=== PATIENT | female | born 2000 | race Caucasian/White ===

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

== ENCOUNTER 2019-03-01 08:07 | Emergency (ER) | payer OTHER ==
[2019-03-01] MEDS ORDERED: Zofran 4 MG/2 ML VIAL IV ONE ×2 (08:44→10:17)
[2019-03-01] MEDS ORDERED: Sodium Chloride 0.9% 1000 ML 1,000 ML IV STA ×2 (08:44→08:45)
[2019-03-01] MEDS ORDERED: PROTONIX 40 MG IV IV ONE ×2 (08:47→08:53)
[2019-03-01 08:51] LABS: BASOPHIL % 0.1 % (0.0-0.4); Basophil (Absolute #) 0.01 (0-0.4); Eosinophil % 0.1 % (0.00-5.0); Eosinophil (Absolute #) 0.01 (0-0.5); Granulocyte Absolute (ANC) 14.91 (1.4-6.9); Granulocytes % 92.9 % (36.0-66.0); Hematocrit 35.4 % (35-47); Hemoglobin 12.4 gm/dl (12.0-16.0); Lymphocyte (Absolute #) 0.59 (1.0-4.6); Lymphocytes % 3.7 % (24.0-44.0); Mean Cell Volume 88.3 fl (78-100); Mean Corpuscular Hemoglobin 30.9 pg (26-32); Mean Platelet Volume 12.2 fl (6-9.5); Monocyte (Absolute #) 0.51 (0.0-1.3); Monocytes % 3.2 % (0.0-12.0); Platelet Count 294 K/mm3 (150-450); Red Blood Count 4.01 M/mm3 (4.1-5.4); Red Cell Distribution Width 12.3 % (11.5-14.0)
[2019-03-01] MEDS ORDERED: Sodium Chloride 0.9% 1000 ML 1,000 ML ONE ×2 (08:53→09:48)
[2019-03-01] MEDS ORDERED: Zofran 4 MG/2 ML VIAL ONE ×2 (08:53→10:33)
--- NOTE | 2019-03-01 08:55 | ERPHSYRPT ---
- History of Present Illness Time Seen by Provider: 03/01/19 08:35 Source: patient Exam Limitations: clinical condition Patient Subjective Stated Complaint: pt here for nausea and vomiting since last night, she states she does this once a month and is going to a neurologist thsi month, she tried antivert at home Triage Nursing Assessment: pt alert,anxious, walked in, resp easy, skin w/d/p, denies any diifficulty with b/b. no fever Physician History: PATIENT WITH A HISTORY OF MONTHLY EMESIS COMPLAINS OF FREQUENT EPISODES OF EMESIS THROUGHOUT LAST NIGHT. DENIES ABDOMINAL PAIN, DIARRHEA, WEAKNESS OR DIZZINESS. ADMITS TO SMOKING MARIJUANA DAILY FOR YEARS. Timing/Duration: today Severity: moderate Associated Symptoms: nausea Allergies/Adverse Reactions: No Known Drug Allergies Allergy (Verified 04/03/17 13:01) Home Medications: Naproxen 250 mg DAILY 03/01/19 [History] Norgestimate-Ethinyl Estradiol [Jys-Yy-Tjuagd Tablet] 1 ea DAILY 03/01/19 [ History] PARoxetine HCl [Paroxetine HCl] 20 mg DAILY 03/01/19 [History] Hx Tetanus, Diphtheria Vaccination/Date Given: Yes Hx Influenza Vaccination/Date Given: No Hx Pneumococcal Vaccination/Date Given: No Immunizations Up to Date: Yes - Review of Systems Constitutional: No Fever, No Chills Eyes: No Symptoms Ears, Nose, & Throat: No Symptoms Respiratory: No Symptoms, No Cough, No Dyspnea Cardiac: No Chest Pain, No Edema, No Syncope Abdominal/Gastrointestinal: Nausea, Vomiting, No Abdominal Pain, No Diarrhea Genitourinary Symptoms: No Symptoms, No Dysuria Musculoskeletal: No Symptoms, No Back Pain, No Neck Pain Skin: No Rash Neurological: No Dizziness, No Focal Weakness, No Sensory Changes Psychological: No Symptoms Endocrine: No Symptoms All Other Systems: Reviewed and Negative - Past Medical History Pertinent Past Medical History: No Neurological History: No Pertinent History ENT History: No Pertinent History Cardiac History: No Pertinent History Respiratory History: No Pertinent History Endocrine Medical History: No Pertinent History Musculoskeletal History: No Pertinent History GI Medical History: Pancreatitis History: No Pertinent History Psycho-Social History: No Pertinent History Female Reproductive Disorders: No Pertinent History Other Medical History: pt states she was recently diagnosed with pancreatitis in an emergency room in [place]. Pt has recent hx of N/V. - Past Surgical History Past Surgical History: No Neuro Surgical History: No Pertinent History Cardiac: No Pertinent History Respiratory: No Pertinent History Gastrointestinal: No Pertinent History Genitourinary: No Pertinent History Musculoskeletal: No Pertinent History Female Surgical History: No Pertinent History - Social History Smoking Status: Never smoker Exposure to second hand smoke: No Drug Use: marijuana Patient Lives Alone: No - Female History Hx Last Menstrual Period: month Hx Now: No (unsure) - Nursing Vital Signs Nursing Vital Signs: Initial Vital Signs Temperature 98.6 F 03/01/19 08:21 Pulse Rate 57 L 03/01/19 08:21 Respiratory Rate 16 03/01/19 08:21 Blood Pressure 128/55 03/01/19 08:21 O2 Sat by Pulse Oximetry 100 03/01/19 08:21 Pain Scale Pain Intensity 3 - Physical Exam General Appearance: no apparent distress, alert Eye Exam: PERRL/EOMI, eyes nml inspection Ears, Nose, Throat Exam: normal ENT inspection, TMs normal, pharynx normal, moist mucous membranes Neck Exam: normal inspection, non-tender, supple, full range of motion Respiratory Exam: normal breath sounds, lungs clear, No respiratory distress Cardiovascular Exam: regular rate/rhythm, normal heart sounds, normal peripheral pulses Gastrointestinal/Abdomen Exam: soft, normal bowel sounds, No tenderness, No mass Back Exam: normal inspection, normal range of motion, No CVA tenderness, No vertebral tenderness Extremity Exam: normal inspection, normal range of motion, pelvis stable Neurologic Exam: alert, oriented x 3, cooperative, normal mood/affect, nml cerebellar function, nml station & gait, sensation nml, No motor deficits Skin Exam: normal color, warm, dry, No rash Lymphatic Exam: No adenopathy SpO2 Interpretation: normal SpO2: 100 - Radiology Exams Abdomen X-ray Interpretation: Discussed w/ radiologist, Negative Ordered Tests: Active Orders 24 hr Category Date Time Status ACCUCHECK [Accucheck] STAT Care 03/01/19 10:18 Active IV Insertion STAT Care 03/01/19 08:44 Active Orthostatic Vital Signs STAT Care 03/01/19 08:44 Active OBSTR/ACUTE ABDOMEN SERIES Stat Exams 03/01/19 08:47 Completed AMYLASE Stat Lab 03/01/19 08:48 Completed BLOOD CULTURE Stat Lab 03/01/19 09:18 Received BMP Stat Lab 03/01/19 08:48 Completed CBC W DIFF Stat Lab 03/01/19 08:48 Completed CULTURE,URINE Stat Lab 03/01/19 08:48 Received HCG,QUALITATIVE URINE Stat Lab 03/01/19 08:51 Completed LIPASE Stat Lab 03/01/19 08:48 Completed UA W/RFX UR CULTURE Stat Lab 03/01/19 08:48 Completed Urine Triage Profile Stat Lab 03/01/19 09:05 Completed VENOUS BLOOD GAS Stat Lab 03/01/19 09:08 Completed Medication Summary Generic Name Dose Route Start Last Admin Trade Name Freq PRN Reason Stop Dose Admin Insulin Human Regular 100 101 mls @ 4.04 mls/hr 03/01/19 09:15 03/01/19 09:54 units/ Sodium Chloride IV 03/31/19 09:14 Not Given .Q24H EUGENE 4 UNITS/HR Discontinued Medications Generic Name Dose Route Start Last Admin Trade Name Freq PRN Reason Stop Dose Admin Sodium Chloride 1,000 mls @ 999 mls/hr 03/01/19 08:44 03/01/19 10:23 Sodium Chloride 0.9% 1000 Ml IV 03/01/19 09:44 Infused .Q1H1M STA Infusion Sodium Chloride 1,000 mls @ 999 mls/hr 03/01/19 08:45 03/01/19 09:49 Sodium Chloride 0.9% 1000 Ml IV 03/01/19 09:45 999 mls/hr .Q1H1M STA Administration Sodium Chloride Confirm 03/01/19 08:53 Sodium Chloride 0.9% 1000 Ml Administered 03/01/19 08:54 Dose 1,000 mls @ ud .ROUTE .STK-MED ONE Ceftriaxone Sodium/Dextrose 1 g in 50 mls @ 100 mls/hr 03/01/19 09:04 10:24 Rocephin 1 Gm-D5w 50 Ml Bag IV 03/01/19 09:33 Infused STAT STA Infusion Ceftriaxone Sodium/Dextrose Confirm 03/01/19 09:42 Rocephin 1 Gm-D5w 50 Ml Bag Administered 03/01/19 09:43 Dose 1 g in 50 mls @ ud IV .STK-MED ONE Sodium Chloride Confirm 03/01/19 09:48 Sodium Chloride 0.9% 1000 Ml Administered 03/01/19 09:49 Dose 1,000 mls @ ud .ROUTE .STK-MED ONE Ondansetron HCl 4 mg 03/01/19 08:44 03/01/19 09:05 Zofran 4 Mg/2 Ml Vial IV 03/01/19 08:45 4 mg STAT ONE Administration Ondansetron HCl Confirm 03/01/19 08:53 Zofran 4 Mg/2 Ml Vial Administered 03/01/19 08:54 Dose 4 mg .ROUTE .STK-MED ONE Ondansetron HCl 4 mg 03/01/19 10:17 03/01/19 10:35 Zofran 4 Mg/2 Ml Vial IV 03/01/19 10:18 4 mg STAT ONE Administration Ondansetron HCl Confirm 03/01/19 10:33 Zofran 4 Mg/2 Ml Vial Administered 03/01/19 10:34 Dose 4 mg .ROUTE .STK-MED ONE Pantoprazole Sodium 40 mg 03/01/19 08:47 03/01/19 09:05 Protonix 40 Mg Iv IV 03/01/19 08:48 40 mg STAT ONE Administration Pantoprazole Sodium Confirm 03/01/19 08:53 Protonix 40 Mg Iv Administered 03/01/19 08:54 Dose 40 mg IV .STK-MED ONE Lab/Rad Data: Laboratory Result Diagrams 03/01/19 08:48 03/01/19 08:48 Laboratory Results 03/01/19 03/01/19 03/01/19 Range/Units 09:08 09:05 08:51 WBC (4.0-10.5) K/mm3 RBC (4.1-5.4) M/mm3 Hgb (12.0-16.0) gm/dl Hct (35-47) % MCV (78-100) fl MCH (26-32) pg MCHC (32-36) g/dl RDW (11.5-14.0) % Plt Count (150-450) K/mm3 MPV (6-9.5) fl Gran % (36.0-66.0) % Eos # (Auto) (0-0.5) Absolute Lymphs (auto) (1.0-4.6) Absolute Monos (auto) (0.0-1.3) Lymphocytes % (24.0-44.0) % Monocytes % (0.0-12.0) % Eosinophils % (0.00-5.0) % Basophils % (0.0-0.4) % Absolute Granulocytes (1.4-6.9) Basophils # (0-0.4) pO2/FiO2 Ratio 21.0 % VBG pH 7.42 (7.32-7.42) VBG pCO2 at Pat Temp 30 L (42-55) mm/Hg VBG pO2 at Pat Temp 32 (25-40) mm/Hg VBG HCO3 19.5 L (22-28) meq/L VBG O2 Sat (Sara) 70.8 L (95-100) VBG Base Excess -4.0 L (-2.0-2.0) VBG Hemoglobin 12.3 VBG Carboxyhemoglobin 4.2 (0.0-6.9) % T HGB POC Potassium 3.2 L (3.5-5.1) Sodium (137-145) mmol/L Potassium (3.5-5.1) mmol/L Chloride (98-107) mmol/L Carbon Dioxide (22-30) mmol/L Anion Gap (5-15) MEQ/L BUN (7-17) mg/dL Creatinine (0.52-1.04) mg/dL Estimated GFR ML/MIN Glucose (74-106) mg/dL Calcium (8.4-10.2) mg/dL Amylase (30-110) U/L Lipase (23-300) U/L Urine Color (YELLOW) Urine Appearance (CLEAR) Urine pH (5-6) Ur Specific [place] (1.005-1.025) Urine Protein (Negative) Urine Ketones (NEGATIVE) Urine Blood (0-5) Will/ul Urine Nitrite (NEGATIVE) Urine Bilirubin (NEGATIVE) Urine Urobilinogen (0-1) mg/dL Ur Leukocyte Esterase (NEGATIVE) Urine WBC (Auto) (0-5) /HPF Urine RBC (Auto) (0-2) /HPF U Epithel Cells (Auto) (FEW) /HPF Urine Bacteria (Auto) (NEGATIVE) /HPF Urine Mucus (Auto) (NEGATIVE) /HPF Urine Culture Reflexed (NO) Urine Glucose (NEGATIVE) mg/dL Urine HCG, Qual NEGATIVE (Negative) Urine Opiates Level NEGATIVE (NEGATIVE) Ur Methadone NEGATIVE (NEGATIVE) Urine Barbiturates NEGATIVE (NEGATIVE) Ur Phencyclidine (PCP) NEGATIVE (NEGATIVE) Urine Amphetamine NEGATIVE (NEGATIVE) U Benzodiazepine Level NEGATIVE (NEGATIVE) Urine Cocaine NEGATIVE (NEGATIVE) Urine Marijuana (THC) POSITIVE (NEGATIVE) Slides for Path Review 03/01/19 03/01/19 03/01/19 Range/Units 08:48 08:48 08:48 WBC 16.0 H (4.0-10.5) K/mm3 RBC 4.01 L (4.1-5.4) M/mm3 Hgb 12.4 (12.0-16.0) gm/dl Hct 35.4 (35-47) % MCV 88.3 (78-100) fl MCH 30.9 (26-32) pg MCHC 35.0 (32-36) g/dl RDW 12.3 (11.5-14.0) % Plt Count 294 (150-450) K/mm3 MPV 12.2 H (6-9.5) fl Gran % 92.9 H (36.0-66.0) % Eos # (Auto) 0.01 (0-0.5) Absolute Lymphs (auto) 0.59 L (1.0-4.6) Absolute Monos (auto) 0.51 (0.0-1.3) Lymphocytes % 3.7 L (24.0-44.0) % Monocytes % 3.2 (0.0-12.0) % Eosinophils % 0.1 (0.00-5.0) % Basophils % 0.1 (0.0-0.4) % Absolute Granulocytes 14.91 H (1.4-6.9) Basophils # 0.01 (0-0.4) pO2/FiO2 Ratio % VBG pH (7.32-7.42) VBG pCO2 at Pat Temp (42-55) mm/Hg VBG pO2 at Pat Temp (25-40) mm/Hg VBG HCO3 (22-28) meq/L VBG O2 Sat (Sara) (95-100) VBG Base Excess (-2.0-2.0) VBG Hemoglobin VBG Carboxyhemoglobin (0.0-6.9) % T HGB POC Potassium (3.5-5.1) Sodium 141 (137-145) mmol/L Potassium 3.3 L (3.5-5.1) mmol/L Chloride 106 (98-107) mmol/L Carbon Dioxide 19 L (22-30) mmol/L Anion Gap 19.0 H (5-15) MEQ/L BUN 11 (7-17) mg/dL Creatinine 0.63 (0.52-1.04) mg/dL Estimated GFR > 60.0 ML/MIN Glucose 150 H (74-106) mg/dL Calcium 9.7 (8.4-10.2) mg/dL Amylase 114 H (30-110) U/L Lipase 30 (23-300) U/L Urine Color YELLOW (YELLOW) Urine Appearance CLOUDY (CLEAR) Urine pH 7.0 (5-6) Ur Specific [place] 1.030 (1.005-1.025) Urine Protein >=500 (Negative) Urine Ketones MODERATE (NEGATIVE) Urine Blood NEGATIVE (0-5) Will/ul Urine Nitrite NEGATIVE (NEGATIVE) Urine Bilirubin NEGATIVE (NEGATIVE) Urine Urobilinogen NEGATIVE (0-1) mg/dL Ur Leukocyte Esterase LARGE (NEGATIVE) Urine WBC (Auto) >100 (0-5) /HPF Urine RBC (Auto) 6-10 (0-2) /HPF U Epithel Cells (Auto) FEW (FEW) /HPF Urine Bacteria (Auto) MODERATE (NEGATIVE) /HPF Urine Mucus (Auto) SLIGHT (NEGATIVE) /HPF Urine Culture Reflexed YES (NO) Urine Glucose 50 (NEGATIVE) mg/dL Urine HCG, Qual (Negative) Urine Opiates Level (NEGATIVE) Ur Methadone (NEGATIVE) Urine Barbiturates (NEGATIVE) Ur Phencyclidine (PCP) (NEGATIVE) Urine Amphetamine (NEGATIVE) U Benzodiazepine Level (NEGATIVE) Urine Cocaine (NEGATIVE) Urine Marijuana (THC) (NEGATIVE) Slides for Path Review YES - Progress Progress: unchanged (IN) Progress Note: 03/01/19 08:56 IV NORMAL SALINE 1000ML/HR X 2 ZOFRAN 4MG, PROTONIX 40MG IV 03/01/19 10:56, ROCEPHIN 1GM IVPB URINE WITH WBC>100, BACT-MODERATE 03/01/19 10:57 - Departure Departure Disposition: Home Clinical Impression: ACUTE EMESIS, URINARY TRACT INFECTION, HYPOKALEMIA Condition: Stable Critical Care Time: No Referrals: CHULA GONZALEZ [Primary Care Provider] - Additional Instructions: BEGIN A CLEAR LIQUID DIET FOR 24 HOURS THE ADVANCE DIET. KLOR CON 20MEQ DAILY FOR 1 WEEK. ANTIBIOTIC LEVAQUIN 500MG DAILY FOR 10 DAYS. ZOFRAN 4MG EVERY 4 HOURS FOR NAUSEA. PHENERGAN SUPPOSITORY 25MG PER RECTUM EVERY 4 HOURS FOR NAUSEA. KLOR CON 20MEQ DAILY FOR 1 WEEK FOR TREATMENT OF LOW POTASSIUM. CONSULT YOUR PRIMARY CARE PROVIDER FOR FOLLOWUP IN 4-5 DAYS. Prescriptions: Promethazine HCl 25 mg Supp [Phenergan 25 mg Supp] 25 mg RC Q4H PRN PRN # 12 supp.rect PRN Reason: Nausea Ondansetron ODT 4 MG [Zofran Odt 4 mg] 4 mg PO Q6H PRN PRN #10 tab.rapdis PRN Reason: Nausea Levofloxacin [Levaquin] 500 mg PO DAILY #10 tablet Potassium Chloride [Klor-Con M20] 20 meq PO DAILY #7 tab.er.prt
[2019-03-01 08:58] LABS: AMYLASE 114 U/L (30-110); Appearance CLOUDY (CLEAR); BLOOD UREA NITROGEN 11 mg/dL (7-17); Bacteria MODERATE /HPF (NEGATIVE); Bilirubin NEGATIVE (NEGATIVE); Blood NEGATIVE Ery/ul (0-5); CHLORIDE 106 mmol/L (98-107); Calcium 9.7 mg/dL (8.4-10.2); Carbon Dioxide 19 mmol/L (22-30); Creatinine 1 0.63 mg/dL (0.52-1.04); Epithelial Cells FEW /HPF (FEW); Glucose 150 mg/dL (74-106); Glucose 50 mg/dL (NEGATIVE); Ketones MODERATE (NEGATIVE); LIPASE 30 U/L (23-300); Leukocyte Esterase LARGE (NEGATIVE); Mucus SLIGHT /HPF (NEGATIVE); Nitrite NEGATIVE (NEGATIVE); Potassium 3.3 mmol/L (3.5-5.1); Protein,Urine Dip >=500 (Negative); SODIUM 141 mmol/L (137-145); Urobilinogen NEGATIVE mg/dL (0-1); WBC >100 /HPF (0-5)
[2019-03-01] MEDS ORDERED: ROCEPHIN 1 Gm-D5w 50 ml Bag** 1 G/50 ML IVPB IV STA (09:04)
[2019-03-01 09:10] LABS: VBG CARBOXYHEMOGLOBIN 4.2 % T HGB (0.0-6.9); VBG HCO3- 19.5 meq/L (22-28); VBG HEMOGLOBIN 12.3; VBG O2 SATURATION 70.8 (95-100); VBG POTASSIUM 3.2 (3.5-5.1); VBG pH 7.42 (7.32-7.42)
[2019-03-01] MEDS ORDERED: NOVOLIN R INSULIN (FOR DRIPS)** 100 UNITS in Sodium Chloride 0.9% 100 ML IVPB 100 ML IV SCH (09:15)
[2019-03-01 09:21] LABS: Amphetamine,Urine NEGATIVE (NEGATIVE); Barbiturate,Urine NEGATIVE (NEGATIVE); Benzodiazepine,Urine NEGATIVE (NEGATIVE); Cocaine,Urine NEGATIVE (NEGATIVE); Methadone,Urine NEGATIVE (NEGATIVE); Opiate,Urine NEGATIVE (NEGATIVE); PCP,Urine NEGATIVE (NEGATIVE); THC,Urine POSITIVE (NEGATIVE)
[2019-03-01] MEDS ORDERED: ROCEPHIN 1 Gm-D5w 50 ml Bag** 1 G/50 ML IVPB IV ONE (09:42)
--- NOTE | 2019-03-01 09:53 | XRAY ---
Indication: Vomiting. Comparison: [facility] March 31, 2017. 2 views of the abdomen again nonacute and nonobstructed. Solid organs unremarkable. Osseous structures intact again with mild scoliosis. Single PA chest demonstrates normal heart, lungs, and bony thorax. Impression: Negative abdomen. Normal 1 view chest.
[2019-03-01 09:59] LABS: Slide Review 1 YES
[2019-03-01 10:28] VITALS: BP 127/82
[2019-03-01 10:53] VITALS: PULSE 62
[2019-03-01 11:01] VITALS: O2SAT 100
== END 2019-03-01 11:27 | disposition home or self-care (01) ==
LOC: ED 08:07
DX: R11.2 Nausea with vomiting, unspecified (principal); N39.0 Urinary tract infection, site not specified; E87.6 Hypokalemia; Z79.899 Other long term (current) drug therapy
CPT/HCPCS: 36000; 36415; 74022; 80048; 80307; 81001; 82150; 82805; 82962; 83690; 84703; 85025; 87040; 87086; 96360; 96361; 96365; 96374; 96375; 96376; 99284; J0696; J2405